=== PATIENT | male | born 1965 | race Caucasian/White ===

== ENCOUNTER 2019-09-28 12:38 | Observation (INO) | payer SELFPAY ==
--- NOTE | 2019-09-28 13:16 | RAD ---
RADIOGRAPH CHEST 1 VIEW: DATE: 09/28/2019 HISTORY: 54-year-old male with right-sided chest pain FINDINGS: There are no airspace densities, pulmonary edema, pneumothorax, or cardiomegaly. The lateral costophr enic angles are sharp. IMPRESSION: No acute cardiopulmonary findings.
[2019-09-28 13:37] LABS: #Basophils 0.1 thou/uL (0.0-0.2); #Eosinphils 0.3 thou/uL (0.0-0.7); #Lymphocytes 2.8 thou/uL (1.20-3.40); #Monocytes 0.5 thou/uL (0.11-0.59); #Neutrophils 5.6 thou/uL (1.40-6.50); %Basophils 1.3 % (0.0-1.0); %Eosinophils 2.9 % (0.0-10.0); %Lymphocytes 29.8 % (21.0-51.0); %Monocytes 5.3 % (0.0-10.0); %Neutrophils 60.7 % (42.0-75.0); Hemoglobin 14.8 g/dL (14.0-18.0); Mean Corpuscular HGB CONC 32.8 g/dL (32.0-36.0); Mean Corpuscular Hemoglobin 28.1 pg (27.0-31.0); Mean Corpuscular Volume 85.6 fL (78.0-98.0); Mean Platelet Volume 7.9 fL (7.4-10.4); Platelet Count 279 thou/uL (130-400); RBC Distribution Width 12.2 % (11.5-14.5); Red Blood Cell (RBC) Count 5.25 mill/uL (4.70-6.10); White Blood Cell (WBC) Count 9.3 thou/uL (4.8-10.8)
[2019-09-28 13:55] LABS: ALT (SGPT) 24 U/L (8-55); AST (SGOT) 18 U/L (5-34); Albumin 4.1 g/dL (3.5-5.0); Alkaline Phosphatase 80 U/L (40-110); Anion Gap 13 mmol/L (10-20); BUN (Urea Nitrogen) 11 mg/dL (8.4-25.7); Bilirubin, Total 0.7 mg/dL (0.2-1.2); Calc. Creatinine Clearance 0 mL/min (70-130); Carbon Dioxide 25 mmol/L (22-29); Chloride 106 mmol/L (98-107); Estimated GFR-MDRD 80; Globulin 2.5 g/dL (2.4-3.5); Glucose 124 mg/dL (70-105); Lipase 10 U/L (8-78); Potassium 3.7 mmol/L (3.5-5.1); Protein, Total 6.6 g/dL (6.0-8.3); Sodium 140 mmol/L (136-145)
[2019-09-28 13:59] LABS: Acetaminophen Less than 6.0 mcg/mL (10.0-30.0); Alcohol Less than 10 mg/dL (Less than 10); Salicylate Less than 8.0 mg/dL (15.0-30.0)
[2019-09-28 14:43] LABS: Bilirubin Negative (Negative); Blood, Urine Negative (Negative); Clarity Clear (Clear); Glucose, Urine (Dipstick) Normal (Negative); Leukocyte Negative Leu/uL (Negative); Nitrite Negative (Negative); Protein, Urine (Dipstick) Negative (Neg-Trace); Urobilinogen Normal mg/dL (Less than 2)
--- NOTE | 2019-09-28 14:45 | CT ---
CT BRAIN NONCONTRAST: DATE: 09/28/2019 HISTORY: 54-year-old male with altered mental status FINDINGS: There is no evidence of acute intra-axial or extra-axial hemorrhage. There is no midline shift or any other mass effect. There is no extra-axial fluid collection. The ventricles are normal in size and configuration. The tympanomastoid cavities, and the upper portions of the paranasal sinuses included in these images, are grossly clear. Calvarium is intact. IMPRESSION: Normal.
[2019-09-28 14:50] LABS: Amphetamine Not Detected (NotDetected); Barbiturates Screen Not Detected (NotDetected); Benzodiazepine Screen Not Detected (NotDetected); Cocaine Metabolite Screen Not Detected (NotDetected); Medtox Control Line Valid? VALID (VALID); Medtox Reader # READER 1; Methadone Not Detected (NotDetected); Methamphetamine Not Detected (NotDetected); Opiate Screen Not Detected (NotDetected); Oxycodone Screen Not Detected (NotDetected); Phencyclidine (PCP) Not Detected (NotDetected); THC/Cannabinoid Screen Not Detected (NotDetected); Tricyclic Screen Not Detected (NotDetected)
[2019-09-28] MEDS ORDERED: Aspirin Chewable 81 MG TAB ONE (15:25)
[2019-09-28] MEDS ORDERED: Ondansetron PF 4 MG/2 ML Vial IVP PRN (16:10)
[2019-09-28] MEDS ORDERED: Acetaminophen 325 MG TAB PO PRN (16:10)
[2019-09-28] MEDS ORDERED: Dextrose 5% in Water 1,000 ML IV PRN (16:13)
[2019-09-28] MEDS ORDERED: Dextrose 50% Abboject 50 ML SYRINGE SLOW IVP PRN (16:13)
[2019-09-28] MEDS ORDERED: HumaLOG 300 UNITS/3 ML VIAL SC PRN (16:13)
[2019-09-28] MEDS ORDERED: Sodium Chloride 0.9% 1,000 ML IV SCH (16:15)
[2019-09-28 16:52] VITALS: BMI 26.9
--- NOTE | 2019-09-28 17:08 | HP ---
CHIEF COMPLAINT: Altered mental status. HISTORY OF PRESENT ILLNESS: Mr. Sanchez is a 54-year-old male who was brought in by EMS today. The patient states that he was tired, he was sleeping in his car. He denies any other recollection of issues, is unable to provide any other history. By report from the emergency room physician, the patient was found sleeping in his car at somebody's house that he does not know. Because he was unarousable, police were contacted, and EMS was contacted and brought the patient in. There is a report of meth being found in the car. Per Dr. Walters, the patient has complained of some intermittent right-sided weakness. For this reason, hospitalist called for admission. No other details are available from the patient, he awakens and will answer 1 or 2 questions and then easily falls back asleep. Most of the responses are that he is tired and doesn' t know what happened. In the emergency room, the patient received 324 mg of aspirin, and hospitalist called for admission. ALLERGIES: NO KNOWN DRUG ALLERGIES. CURRENT MEDICATION: The patient denies. PAST MEDICAL HISTORY: 1. Type 2 diabetes, not on medication. 2. Non-Hodgkin lymphoma. He reports 2 years ago treated with chemotherapy and radiation. PAST SURGICAL HISTORY: Right knee. SOCIAL HISTORY: He smokes one pack of cigarettes per day. He denies any alcohol, denies any drugs. 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 FAMILY HISTORY: He denies any inherited disorders. REVIEW OF SYSTEMS: Not obtainable. The patient simply states that his wrist hurts and the hand that he has an IV in place. He denies any other abnormalities, denies any right-sided weakness. The accuracy of this information is unknown and therefore all review of systems deemed unreliable. PHYSICAL EXAMINATION: VITAL SIGNS: Blood pressure 139/99, pulse 66, respirations 14, sat 98% on room air, and temperature 98.1. GENERAL: The patient awakens to light touch and voice, easily falls back asleep. He is not in apparent distress. HEENT: Some erythema in the right external otic canal, without any edema or drainage. Left external canal is normal. Oral mucosa is pink and moist, there are multiple missing teeth. NECK: Supple, nontender. LYMPHATICS: No palpable cervical or supraclavicular lymphadenopathy. LUNGS: Clear to auscultation bilateral. HEART: Normal S1, S2. No significant murmur. ABDOMEN: Soft. Present bowel sounds. Nontender. Nondistended. EXTREMITIES: No clubbing, cyanosis, or edema. NEUROLOGIC: Follows commands. No focal deficits noted. VASCULAR: 2+ radial pulses. SKIN: No visible rashes. PSYCH: Unable to adequately assess. He is oriented to person, year. He is not oriented to location, month. LABORATORY DATA: CBC: 9.3, 14.8, 44.9, 279. Chemistry: 140, 3.7, 106, 25, 11, 0.98, and 124. Calcium 9. T-bilirubin 0.7, AST 18, ALT 24, alkaline phosphatase 80, total protein 6.6, albumin 4.1. BNP 25. TSH 0.91. Troponin negative. Lactic acid 1.1. UDS: negative, also negative alcohol/salicylates/acetaminophen UA: spec grav 1.001/neg EKGs personally reviewed, sinus rhythm, normal axis, normal intervals, no ST changes. There are Q-waves in the inferior leads. Chest x-ray, personally reviewed. No acute process. Brain CT personally reviewed, no acute intracranial process. IMPRESSION: 1. Encephalopathy, uncertain etiology, suspect that this might be related to drug use despite a negative urine drug screen. 2. Report of intermittent right-sided weakness, unable to obtain further characterize this with patient's history or exam. 3. Type 2 diabetes, not on medication, unknown control. 4. History of non-Hodgkin lymphoma with reported treatment. 5. Tobacco abuse. PLAN: 1. Observation status in the hospital. 2. We will treat this like a TIA evaluation with an MRI, carotid ultrasound, echocardiogram, monitoring on telemetry, and check 1 more troponin. We will also request PT, OT, and speech evaluations. Hold on Neurology consultation, and obtain if there continues to be mental status changes or concerns. 3. IV fluids. We will hydrate with a liter of normal saline and follow electrolytes. 4. Sliding scale insulin as needed. 5. DVT prophylaxis with enoxaparin. 6. GI prophylaxis not indicated. 7. Code status is presumed full. The patient declines to designate. 8. The patient is at high risk given age comorbidities and current presentation. 9. Reviewed the plan of care with the patient who demonstrates understanding or who agrees. No questions or further needs at the end of evaluation. Job ID: [id number] MTDD
[2019-09-28 17:17] LABS: HBSAg Index 0.23 S/CO (0-0.99); HIV (1/2) Antibody/Antigen Non-Reactive (NonReactive); HIV 1/2 INDEX 0.18 S/CO (<1.00); Hep B Surf Ag Non-Reactive S/CO (NonReactive)
[2019-09-28 17:19] LABS: Hep C IgG Ab Reflex HepC Qnt (NonReactive); Hep C Index 14.13 S/CO (0-0.79)
[2019-09-28 20:41] LABS: Troponin I 0.011 ng/mL (< 0.028)
[2019-09-29 04:34] VITALS: BP 133/88; TEMP 97.4
[2019-09-29] MEDS ORDERED: Aspirin 81 mg Enteric Coated Tablet PO SCH (09:00)
[2019-09-29] MEDS ORDERED: Prevnar 13-Val Conj/PF 0.5 ML SYRINGE IM ONE (09:00)
[2019-09-29] MEDS ORDERED: Enoxaparin Sodium 40 MG/0.4 ML SYRINGE SC SCH (09:00)
--- NOTE | 2019-09-30 01:42 | DIS ---
DATE OF ADMISSION: 09/28/2019 DATE OF DISCHARGE: 09/29/2019 Of note, the patient left against medical advice. FINAL DIAGNOSES: 1. Encephalopathy, uncertain etiology. 2. Reported intermittent right-sided weakness, unable to characterize. SECONDARY DIAGNOSES: 1. Type 2 diabetes. 2. History of non-Hodgkin lymphoma. 3. Tobacco abuse. HISTORY OF PRESENT ILLNESS: Mr. Sanchez is a 54-year-old male, who was brought in by EMS as he was found sleeping in his car and was unarousable. The patient was unable to provide any other information. Per the ER physician, he complained of right-sided intermittent weakness, but no other details were available. HOSPITAL COURSE: The patient was admitted to the hospital, placed on telemetry, and monitored overnight. His blood pressures ranged from 130s to 140 systolic. His heart rate remained normal. Early this morning, the patient was asking questions about the plan of care, and then subsequently left the hospital. The nursing staff notes that he did leave with his IV in place, and [place] [employer] was contacted. MEDICATIONS AT DISCHARGE: None. [facility] FINDINGS AND TEST RESULTS: CBC; 9.3, 14.8, 44.9, 279. Renal panel; 140, 3.7, 106, 25, 11, 0.98, 124. LFTs; T bilirubin 0.7, AST 18, ALT 24, alkaline phosphatase 80, total protein 6.6, albumin 4.1. Troponin x3 negative. Urinalysis; specific gravity 1.001, otherwise negative. Urine toxicology negative, plasma alcohol negative, Tylenol and salicylates negative. Hepatitis C antibody is highlighted with an H, the result is being sent for a quant, so hepatitis C antibody positive, reflexively sent for a quant. HIV and hepatitis B antigen negative. Chest x-ray on 09/27 is negative for an acute cardiopulmonary process. Brain CT on 09/27 is normal. PLAN: The patient should follow up with the primary care provider at his earliest convenience. Job ID: [id number]
[2019-10-02 15:13] LABS: HCV log10 6.526 (.); Hep C PCR-Quant 3360000 IU/mL (.)
== END 2019-09-29 04:50 | disposition left against medical advice (07) ==
LOC: ERS 12:38 → 2SE 15:39
PROVIDERS: ADMIT Family Medicine; ATTEND Family Medicine
DX: G93.40 Encephalopathy, unspecified (principal); E11.9 Type 2 diabetes mellitus without complications; F17.210 Nicotine dependence, cigarettes, uncomplicated; Z85.71 Personal history of Hodgkin lymphoma
CPT/HCPCS: 36415; 36416; 70450; 71045; 80053; 80306; 80307; 81003; 83605; 83690; 83880; 84443; 84484; 85025; 86803; 87340; 87389; 87522; 93005; 96360; 96361; G0378

== ENCOUNTER 2020-03-23 11:04 | Emergency (ER) | payer MEDICAID, OTHER ==
[2020-03-23 16:37] LABS: SARS-CoV-2 MS2 Positive; SARS-CoV-2 N Gene Negative; SARS-CoV-2 S Gene Negative; SARS-CoV-2 by NAA Not Detected (NotDetected); SARS-CoV-2 orf1ab Negative
--- NOTE | 2020-03-30 06:16 | PQF ---
[facility] POST DISCHARGE CLINICAL DOCUMENTATION IMPROVEMENT CLARIFICATION FORM Todays Date: 03/27/2020 Patients Name Greg Sanchez Admit Date 03/23/2020 Disch Date 03/23/2020 Frame Assembler Name Dayne Dasilva Email: [email or web address] Cell: [phone] To be completed by Frame Assembler: Present Clinical Indicators - Signs / Symptoms Results and Location in Medical Record [ ] Documentation of: [ ] [ ] Documentation of: [ ] [ ] Documentation of: [ ] [ ] Documentation of: [ ] [ ] Risks [ ] [ ] [ ] Treatment [ ] Bronchitis Query for Specificty of acute or chronic Bronchitis [ ] [ ] To be completed by Physician: DO Marie Matthew The documentation in this patients record requires clarification to ensure coding compliance and accuracy. Check the appropriate box and include in your discharge summary. [X] Acute Bronchitis [ ] [ ] [ ] Please check this box if this does not apply to this patient [ ] Unable to determine [ ] Other diagnosis: Review the following information and exercise your independent professional judgment in responding to the clarification. Based upon the clinical findings, risk factors, and treatment, please clarify if you are treating one of the above probable or suspected diagnoses. Physician Signature: ___Jeremy Marie Date__03/31/2020____ Time____230p MTDD
== END 2020-03-23 12:09 | disposition home or self-care (01) ==
LOC: ERS 11:04
DX: J40 Bronchitis, not specified as acute or chronic (principal); Z20.828 Contact with and (suspected) exposure to other viral communicable diseases; E11.9 Type 2 diabetes mellitus without complications; F17.210 Nicotine dependence, cigarettes, uncomplicated; Z85.00 Personal history of malignant neoplasm of unspecified digestive organ; Z87.442 Personal history of urinary calculi
CPT/HCPCS: 87635; 99283; U0003

== ENCOUNTER 2021-05-04 18:22 | Emergency (ER) | payer MEDICAID, OTHER ==
[2021-05-04] MEDS ORDERED: Insulin Regular 300 UNITS/3 ML VIAL ONE (22:00)
== END 2021-05-04 23:22 | disposition home or self-care (01) ==
LOC: ERS 18:22
DX: J20.9 Acute bronchitis, unspecified (principal); E11.65 Type 2 diabetes mellitus with hyperglycemia; F17.210 Nicotine dependence, cigarettes, uncomplicated
CPT/HCPCS: 36416; 71045; J1815

== ENCOUNTER 2022-09-22 02:49 | Inpatient (IN) | payer OTHER ==
[2022-09-22] MEDS ORDERED: Ketorolac Tromethamine 30 MG/ML VIAL ONE ×2 (03:56→12:21)
[2022-09-22] MEDS ORDERED: HYDROcodone/Acetaminophen 10/325 mg Tablet ONE (09:48)
[2022-09-22] MEDS ORDERED: CEFAZOLIN 2 GM VIAL ONE (09:48)
[2022-09-22] MEDS ORDERED: Dexamethasone 10 MG/ML VIAL ONE (09:48)
[2022-09-22] MEDS ORDERED: Chlorhexidine Gluconate 15 ML UDCUP SSP SCH (10:15)
[2022-09-22 10:41] LABS: #Basophils 0.1 thou/uL (0.0-0.2); #Eosinphils 0.3 thou/uL (0.0-0.7); #Lymphocytes 2.2 thou/uL (1.20-3.40); #Monocytes 0.4 thou/uL (0.11-0.59); #Neutrophils 4.1 thou/uL (1.40-6.50); %Basophils 0.8 % (0.0-1.0); %Lymphocytes 31.6 % (21.0-51.0); %Monocytes 5.7 % (0.0-10.0); %Neutrophils 57.9 % (42.0-75.0); Hemoglobin 14.6 g/dL (14.0-18.0); Mean Corpuscular HGB CONC 32.5 g/dL (32.0-36.0); Mean Corpuscular Hemoglobin 27.5 pg (27.0-31.0); Mean Corpuscular Volume 84.6 fl (78.0-98.0); Mean Platelet Volume 7.9 fL (7.4-10.4); Platelet Count 305 10x3/uL (130-400); RBC Distribution Width 12.1 % (11.5-14.5); Red Blood Cell (RBC) Count 5.29 mill/uL (4.70-6.10)
[2022-09-22 11:21] LABS: ALT (SGPT) 19 U/L (8-55); AST (SGOT) 17 U/L (5-34); Alkaline Phosphatase 89 U/L (40-110); Anion Gap 12 mmol/L (10-20); BUN (Urea Nitrogen) 14 mg/dL (8.4-25.7); Bilirubin, Total 0.6 mg/dL (0.2-1.2); Calc. Creatinine Clearance 0 mL/min (70-130); Calcium 9.1 mg/dL (7.8-10.44); Carbon Dioxide 27 mmol/L (22-29); Chloride 105 mmol/L (98-107); Estimated GFR 102; Globulin 2.4 g/dL (2.4-3.5); Glucose 127 mg/dL (70-105); Potassium 4.2 mmol/L (3.5-5.1); Protein, Total 6.4 g/dL (6.0-8.3); Sodium 140 mmol/L (136-145)
[2022-09-22] MEDS ORDERED: Dextrose 5% in Water 1,000 ML IV PRN (12:01)
[2022-09-22] MEDS ORDERED: Ipratropium/Albuterol 3 ML NEB NEB PRN (12:01)
[2022-09-22] MEDS ORDERED: Dextrose 50% Abboject 50 ML SYRINGE SLOW IVP PRN (12:01)
[2022-09-22] MEDS ORDERED: Ondansetron PF 4 MG/2 ML Vial IVP PRN (12:01)
[2022-09-22] MEDS: Acetaminophen 650 MG/20.3 ML UDCUP PO SCH ×3 (15:03→23:31)
[2022-09-22] MEDS: Sodium Chloride 0.9% 1,000 ML IV SCH ×2 (16:00→23:31)
[2022-09-22 16:15] VITALS: BMI 26.0
[2022-09-22 18:06] LABS: INR-International Normal Ratio 1.1; Prothrombin Time 14.6 sec (12.0-14.7)
[2022-09-22] MEDS: Famotidine/PF 20 mg/2ml Vial SLOW IVP SCH (20:13)
[2022-09-22] MEDS: Acetaminophen W/ Codeine 5 ML UDCUP PO PRN (22:30)
[2022-09-23] MEDS: Acetaminophen W/ Codeine 5 ML UDCUP PO PRN ×3 (05:32→22:08)
[2022-09-23] MEDS: Acetaminophen 650 MG/20.3 ML UDCUP PO SCH ×4 (05:41→23:59)
[2022-09-23] MEDS: Sodium Chloride 0.9% 1,000 ML IV SCH ×3 (05:57→22:03)
[2022-09-23 06:31] LABS: #Eosinphils 0.1 thou/uL (0.0-0.7); #Lymphocytes 1.3 thou/uL (1.20-3.40); #Monocytes 0.6 thou/uL (0.11-0.59); #Neutrophils 9.2 thou/uL (1.40-6.50); %Basophils 0.4 % (0.0-1.0); %Eosinophils 0.5 % (0.0-10.0); %Lymphocytes 11.9 % (21.0-51.0); %Monocytes 5.4 % (0.0-10.0); %Neutrophils 81.8 % (42.0-75.0); Hemoglobin 12.9 g/dL (14.0-18.0); Mean Corpuscular HGB CONC 32.4 g/dL (32.0-36.0); Mean Corpuscular Hemoglobin 27.4 pg (27.0-31.0); Mean Corpuscular Volume 84.5 fl (78.0-98.0); Mean Platelet Volume 7.7 fL (7.4-10.4); Platelet Count 315 10x3/uL (130-400); White Blood Cell (WBC) Count 11.3 10x3/uL (4.8-10.8)
[2022-09-23 06:40] LABS: INR-International Normal Ratio 1.1; PTT 27.3 sec (22.9-36.1); Prothrombin Time 14.7 sec (12.0-14.7)
[2022-09-23 06:50] LABS: Anion Gap 12 mmol/L (10-20); BUN (Urea Nitrogen) 17 mg/dL (8.4-25.7); Calc. Creatinine Clearance 113 mL/min (70-130); Calcium 8.7 mg/dL (7.8-10.44); Carbon Dioxide 23 mmol/L (22-29); Chloride 106 mmol/L (98-107); Estimated GFR 101; Glucose 299 mg/dL (70-105); Potassium 4.2 mmol/L (3.5-5.1); Sodium 137 mmol/L (136-145)
[2022-09-23] MEDS: Famotidine/PF 20 mg/2ml Vial SLOW IVP SCH ×2 (09:51→20:47)
[2022-09-23] MEDS ORDERED: traMADol HCl 50 MG TAB PO PRN (11:16)
[2022-09-23] MEDS: traMADol HCl 50 MG TAB PO SCH ×2 (12:07→17:49)
[2022-09-23] MEDS: Morphine 2 MG/ML VIAL SLOW IVP PRN ×2 (12:07→21:04)
[2022-09-23] MEDS: Ibuprofen 200 MG TAB PO SCH ×2 (12:15→20:57)
[2022-09-23] MEDS: Gabapentin 300 MG CAP PO SCH ×2 (15:25→20:58)
[2022-09-23] MEDS ORDERED: Lidocaine 1% (PF) 30 ML VIAL ONE (16:51)
[2022-09-23] MEDS ORDERED: EPINEPHrine 1 MG/ML AMP ONE (16:51)
[2022-09-23] MEDS ORDERED: Chlorhexidine Gluconate 15 ML UDCUP SSP ONE (16:51)
[2022-09-23] MEDS ORDERED: Sevoflurane 250 ML INH ANEST BOTTLE ONE (16:54)
[2022-09-23] MEDS ORDERED: Dexmedetomidine 200 MCG/2 ML VIAL ONE (16:54)
[2022-09-23] MEDS ORDERED: Fentanyl 250 MCG/5 ML VIAL ONE (16:54)
[2022-09-23] MEDS ORDERED: CEFAZOLIN 2 GM VIAL ONE (17:07)
[2022-09-23] MEDS ORDERED: Sodium Chloride 0.9% 100 ML ONE (17:07)
[2022-09-23] MEDS ORDERED: Ondansetron PF 4 MG/2 ML Vial ONE (17:16)
[2022-09-23] MEDS ORDERED: PROPOFOL 200 MG/20 ML VIAL ONE (17:16)
[2022-09-23] MEDS ORDERED: Lidocaine 1% PF 5 ML VIAL ONE (17:16)
[2022-09-23] MEDS ORDERED: NEOSTIGMINE 3 MG/3 ML SYR 3 MG/3 ML SYRINGE ONE (17:16)
[2022-09-23] MEDS ORDERED: ePHEDrine Sulfate 50 MG/10 ML VIAL ONE (17:16)
[2022-09-23] MEDS ORDERED: Rocuronium Bromide 10 MG/ML (10ML VIAL) ONE (17:16)
[2022-09-23] MEDS ORDERED: Dexamethasone 20 MG/5 ML VIAL ONE (17:16)
[2022-09-23] MEDS ORDERED: Glycopyrrolate 0.2 MG/ML 5 ML SYRINGE ONE (17:16)
[2022-09-23] MEDS ORDERED: Bacitracin Zinc Ointment 30 gm TUBE ONE (18:49)
[2022-09-23] MEDS ORDERED: Promethazine HCl 25 MG/ML VIAL IM PRN (19:13)
[2022-09-23] MEDS ORDERED: Ondansetron HCl/PF 4 MG/2 ML Vial IVP PRN (19:13)
[2022-09-23] MEDS ORDERED: HYDROmorphone 2 MG/ML VIAL SLOW IVP PRN (19:13)
[2022-09-23] MEDS ORDERED: fentaNYL 50 mcg/mL 1 mL Vial ONE (19:23)
[2022-09-23] MEDS: Chlorhexidine Gluconate 15 ML UDCUP SSP SCH (20:48)
[2022-09-23] MEDS: Dexamethasone 4 mg/ml Vial SLOW IVP SCH (20:57)
[2022-09-23] MEDS: CEFAZOLIN 2 GM in Sodium Chloride 0.9% 100 ML IVPB SCH (20:59)
[2022-09-23] MEDS: HumaLOG 300 UNITS/3 ML VIAL SC PRN (22:11)
[2022-09-23] MEDS ORDERED: cloNIDine 0.2 MG TAB PO SCH (23:45)
[2022-09-24 04:50] LABS: #Lymphocytes 0.9 thou/uL (1.20-3.40); #Monocytes 0.2 thou/uL (0.11-0.59); #Neutrophils 10.5 thou/uL (1.40-6.50); %Basophils 0.1 % (0.0-1.0); %Eosinophils 0.2 % (0.0-10.0); %Lymphocytes 7.6 % (21.0-51.0); %Monocytes 1.7 % (0.0-10.0); %Neutrophils 90.5 % (42.0-75.0); Mean Corpuscular HGB CONC 33.7 g/dL (32.0-36.0); Mean Corpuscular Hemoglobin 28.7 pg (27.0-31.0); Mean Corpuscular Volume 85.3 fl (78.0-98.0); Mean Platelet Volume 7.5 fL (7.4-10.4); Platelet Count 327 10x3/uL (130-400); RBC Distribution Width 12.2 % (11.5-14.5); Red Blood Cell (RBC) Count 4.86 mill/uL (4.70-6.10); White Blood Cell (WBC) Count 11.6 10x3/uL (4.8-10.8)
[2022-09-24] MEDS: Ibuprofen 200 MG TAB PO SCH ×2 (05:01→12:18)
[2022-09-24] MEDS: traMADol HCl 50 MG TAB PO SCH ×3 (05:02→12:18)
[2022-09-24] MEDS: Acetaminophen 650 MG/20.3 ML UDCUP PO SCH ×2 (05:03→12:18)
[2022-09-24] MEDS: Acetaminophen W/ Codeine 5 ML UDCUP PO PRN (05:04)
[2022-09-24] MEDS: CEFAZOLIN 2 GM in Sodium Chloride 0.9% 100 ML IVPB SCH (05:04)
[2022-09-24] MEDS: Dexamethasone 4 mg/ml Vial SLOW IVP SCH (05:07)
[2022-09-24 05:15] LABS: Anion Gap 12 mmol/L (10-20); BUN (Urea Nitrogen) 13 mg/dL (8.4-25.7); Calc. Creatinine Clearance 108 mL/min (70-130); Calcium 8.7 mg/dL (7.8-10.44); Carbon Dioxide 28 mmol/L (22-29); Chloride 100 mmol/L (98-107); Estimated GFR 97; Glucose 271 mg/dL (70-105); Magnesium 1.8 mg/dL (1.6-2.6); Phosphorus 3.7 mg/dL (2.3-4.7); Sodium 135 mmol/L (136-145)
[2022-09-24] MEDS: HumaLOG 300 UNITS/3 ML VIAL SC PRN ×2 (06:39→12:18)
[2022-09-24] MEDS ORDERED: cloNIDine 0.2 MG TAB PO SCH (09:00)
[2022-09-24] MEDS: Famotidine/PF 20 mg/2ml Vial SLOW IVP SCH (09:06)
[2022-09-24] MEDS: Chlorhexidine Gluconate 15 ML UDCUP SSP SCH (09:06)
[2022-09-24] MEDS: Gabapentin 300 MG CAP PO SCH (09:06)
[2022-09-24 12:08] VITALS: BP 121/77; TEMP 97.4
[2022-09-24] MEDS ORDERED: metFORMIN 500 MG TAB PO SCH (17:00)
[2022-09-24] MEDS ORDERED: Simvastatin 10 MG TAB PO SCH (21:00)
== END 2022-09-24 15:10 | disposition home or self-care (01) | DRG 141 ==
LOC: ERS 02:49 → SURG A 11:24
PROVIDERS: ADMIT Surgery; ATTEND Surgery
PROC: 0NST04Z Reposition Right Mandible with Internal Fixation Device, Open Approach (ICD-10-PCS; principal; 2022-09-23)
PROC: 0CDWXZ1 Extraction of Upper Tooth, Multiple, External Approach (ICD-10-PCS; 2022-09-23)
DX: S02.601A Fracture of unspecified part of body of right mandible, initial encounter for closed fracture (principal); C85.90 Non-Hodgkin lymphoma, unspecified, unspecified site; S02.622A Fracture of subcondylar process of left mandible, initial encounter for closed fracture; S02.40DA Maxillary fracture, left side, initial encounter for closed fracture; F17.210 Nicotine dependence, cigarettes, uncomplicated; R73.9 Hyperglycemia, unspecified; Z98.890 Other specified postprocedural states; V17.4XXA Pedal cycle driver injured in collision with fixed or stationary object in traffic accident, initial encounter
CPT/HCPCS: 36415; 36416; 70450; 70486; 76377; 80048; 80053; 83036; 83735; 84100; 85025; 85610; 85730; 93005; 93010; 94760; 96365; 96372; 96375; C1713; J0171; J1100; J1815; J1885; J2001; J2272; J2405; J2704; J3010; J3490; J7050; S0028

== ENCOUNTER 2022-10-09 22:53 | Emergency (ER) | payer OTHER | END 2022-10-10 01:49 | disposition home or self-care (01) | LOC: ERS 22:53 | DX: K08.89 Other specified disorders of teeth and supporting structures (principal); E11.9 Type 2 diabetes mellitus without complications; F17.210 Nicotine dependence, cigarettes, uncomplicated | CPT/HCPCS: 99282 ==